=== PATIENT | female | born 1940 | race Caucasian/White ===

== ENCOUNTER 2016-07-18 05:47 | Day surgery (SDC) | payer MEDICARE ==
[~2016-07-18] VITALS: Ht 167.6 cm; Wt 72.6 kg
[~2016-07-18 05:47] MED LIST: ACIDOPHILUS/PECTIN PO; AZATHIOPRINE50 MG PO; CYCLOBENZAPR10 MG PO; MIRTAZAPINE45 M1 PO; [UNRECOGNIZED DRUG - OTHER] PO
[2016-07-18 08:07] VITALS: BP 142/65
== END 2016-07-18 08:39 | disposition home or self-care (01) ==
LOC: ENDO 05:47
PROVIDERS: ATTEND Internal Medicine Gastroenterology
PROC: 0DBG8ZX Excision of Left Large Intestine, Via Natural or Artificial Opening Endoscopic, Diagnostic (ICD-10-PCS; principal; 2016-07-18)
PROC: 0DBP8ZX Excision of Rectum, Via Natural or Artificial Opening Endoscopic, Diagnostic (ICD-10-PCS; 2016-07-18)
PROC: 0DBL8ZX Excision of Transverse Colon, Via Natural or Artificial Opening Endoscopic, Diagnostic (ICD-10-PCS; 2016-07-18)
PROC: 0DBF8ZX Excision of Right Large Intestine, Via Natural or Artificial Opening Endoscopic, Diagnostic (ICD-10-PCS; 2016-07-18)
DX: K57.30 Diverticulosis of large intestine without perforation or abscess without bleeding (principal); K51.90 Ulcerative colitis, unspecified, without complications; K64.4 Residual hemorrhoidal skin tags; K64.8 Other hemorrhoids; K63.5 Polyp of colon; F32.9 Major depressive disorder, single episode, unspecified; F41.9 Anxiety disorder, unspecified; Z80.0 Family history of malignant neoplasm of digestive organs; Z86.010 Personal history of colon polyps

== ENCOUNTER 2017-01-03 10:20 | Observation (INO) | payer MEDICARE ==
[~2017-01-03] VITALS: Ht 167.6 cm; Wt 73.6 kg
[2017-01-03 11:20] LABS: HEMATOCRIT 45.4 % (37.0-47.0); HEMOGLOBIN 15.1 g/dl (12.0-16.0); IMMATURE GRANULOCYTES 0.2 % (0.0-1.0); MEAN CELL VOLUME 94.4 fL CALC (80.0-100.0); MEAN CORPUSCULAR HGB 31.4 pG CALC (26.0-32.0); MEAN CORPUSCULAR HGB CONC 33.3 g/L CALC (32.0-36.0); NEUT# 3.62 thou/uL (2.00-7.15); RED BLOOD COUNT 4.81 mill/uL (4.20-5.60); RED CELL DISTRI WIDTH 12.9 % (11.5-15.5)
[2017-01-03 11:34] LABS: ANION GAP 14 (6-22 (CALC)); BUN 15 mg/dL (8-23); BUN/CREATININE RATIO 25 (12-20 (CALC)); CALCIUM 10.1 mg/dL (8.4-10.2); CARBON DIOXIDE 28 mmol/l (22-30); CHLORIDE 106 mmol/l (95-108); CREATININE 0.6 mg/dL (0.5-1.0); GFR > 60 ML/MIN (>=60 (CALC)); GFR FOR AFR.AMER. > 60 ML/MIN (>=60 (CALC)); GLUCOSE 116 mg/dL (82-115); POTASSIUM 4.3 mmol/l (3.5-5.1); SODIUM 144 mmol/l (137-146)
[2017-01-03 14:38] VITALS: BP 170/83
[2017-01-03 15:23] VITALS: BP 164/72
[2017-01-03 19:10] VITALS: BP 151/59
[2017-01-03 20:00] VITALS: BP 162/64
[2017-01-03 23:45] VITALS: BP 139/63
[2017-01-04 04:25] VITALS: BP 146/76
[2017-01-04 06:50] LABS: ANION GAP 12 (6-22 (CALC)); BUN 11 mg/dL (8-23); BUN/CREATININE RATIO 20 (12-20 (CALC)); CALCIUM 9.9 mg/dL (8.4-10.2); CARBON DIOXIDE 28 mmol/l (22-30); CHLORIDE 108 mmol/l (95-108); CREATININE 0.6 mg/dL (0.5-1.0); GFR > 60 ML/MIN (>=60 (CALC)); GFR FOR AFR.AMER. > 60 ML/MIN (>=60 (CALC)); GLUCOSE 111 mg/dL (82-115); MAGNESIUM 1.9 mg/dL (1.6-2.3); POTASSIUM 4.6 mmol/l (3.5-5.1); SODIUM 143 mmol/l (137-146)
[2017-01-04 07:59] VITALS: BP 122/55
[2017-01-04] MEDS ORDERED: ANTIVERT PO (09:43)
== END 2017-01-04 11:08 | disposition home or self-care (01) ==
LOC: ED 10:20 → ED-I 12:28 → ED 12:38 → MS2 12:39
PROVIDERS: Family Medicine; ADMIT Internal Medicine; ATTEND Internal Medicine
DX: R42 Dizziness and giddiness (principal); R55 Syncope and collapse; R03.0 Elevated blood-pressure reading, without diagnosis of hypertension; J30.9 Allergic rhinitis, unspecified; K51.90 Ulcerative colitis, unspecified, without complications; F33.42 Major depressive disorder, recurrent, in full remission; Z79.899 Other long term (current) drug therapy

== ENCOUNTER 2019-04-22 | Day surgery (SDC) | payer MEDICARE ==
[~2019-04-22] MED LIST changes: +ANTIVERT PO; +FLONASE AL50 MCG/ACT
== END 2019-04-22 11:52 | disposition home or self-care (01) ==
PROC: 0DBG8ZX Excision of Left Large Intestine, Via Natural or Artificial Opening Endoscopic, Diagnostic (ICD-10-PCS; principal; 2019-04-22)
PROC: 0DBL8ZX Excision of Transverse Colon, Via Natural or Artificial Opening Endoscopic, Diagnostic (ICD-10-PCS; 2019-04-22)
PROC: 0DBN8ZX Excision of Sigmoid Colon, Via Natural or Artificial Opening Endoscopic, Diagnostic (ICD-10-PCS; 2019-04-22)
PROC: 0DBF8ZX Excision of Right Large Intestine, Via Natural or Artificial Opening Endoscopic, Diagnostic (ICD-10-PCS; 2019-04-22)
DX: K51.90 Ulcerative colitis, unspecified, without complications (principal); K57.30 Diverticulosis of large intestine without perforation or abscess without bleeding; K63.5 Polyp of colon; K64.8 Other hemorrhoids; K64.4 Residual hemorrhoidal skin tags; Z80.0 Family history of malignant neoplasm of digestive organs; Z86.010 Personal history of colon polyps; Z79.899 Other long term (current) drug therapy